=== PATIENT | female | born 1955 | race Two or more races ===

== ENCOUNTER → 2016-12-16 | Outpatient (CLI) | payer OTHER | END | disposition home or self-care (01) | LOC: MA 12:55 | PROC: BH02ZZZ Plain Radiography of Bilateral Breasts (ICD-10-PCS; principal; 2016-12-16) | DX: Z12.39 Encounter for other screening for malignant neoplasm of breast (principal) | CPT/HCPCS: G0202 ==

== ENCOUNTER → 2017-01-12 | Outpatient (CLI) | payer OTHER | END | disposition home or self-care (01) | LOC: US 14:01 | PROC: BG44ZZZ Ultrasonography of Thyroid Gland (ICD-10-PCS; principal; 2017-01-12) | PROC: B345ZZZ Ultrasonography of Bilateral Common Carotid Arteries (ICD-10-PCS; 2017-01-12) | PROC: B348ZZZ Ultrasonography of Bilateral Internal Carotid Arteries (ICD-10-PCS; 2017-01-12) | DX: R55 Syncope and collapse (principal); R63.4 Abnormal weight loss; R06.02 Shortness of breath ==

== ENCOUNTER → 2018-06-24 | Outpatient (CLI) | payer OTHER | END | disposition home or self-care (01) | LOC: RD 08:55 | DX: Z01.818 Encounter for other preprocedural examination (principal) | CPT/HCPCS: Q0092 ==